=== PATIENT | female | born 1965 | race American Indian/Alaskan Native ===

== ENCOUNTER 2018-07-15 05:52 | Day surgery (SDC) | payer OTHER ==
[~2018-07-15 05:52] MED LIST: ANCEF/STERILE WATER 2 GM/20 ML 2 GM/20 ML SYRINGE IV NR
[2018-07-15] MEDS ORDERED: LACTATED RINGERS 1,000 ML IV SCH (07:12)
[2018-07-15] MEDS ORDERED: NACL BACTERIOSTATIC INFILTRATI ONE (07:13)
--- NOTE | 2018-07-15 07:32 | Anesthesia Day of Surgery ---
Anesthesia Day of Surgery - Day of Surgery Patient Examined: Yes Patient H&P Reviewed: Yes Patient is NPO: Yes
--- NOTE | 2018-07-15 07:32 | Anesthesia Consultation ---
Anesthesia Consult and Med Hx Date of service: 07/15/18 - Airway Anesthetic Teeth Evaluation: Good ROM Head & Neck: Adequate Mental/Hyoid Distance: Adequate Mallampati Class: Class III Intubation Access Assessment: Possibly Difficult - Pulmonary Exam CTA: Yes - Cardiac Exam Cardiac Exam: RRR - Pre-Operative Health Status ASA Pre-Surgery Classification: ASA1 Proposed Anesthetic Plan: General - Pulmonary Hx Smoking: No Hx Asthma: No Hx Respiratory Symptoms: No (no recent cough or flu-like symptoms) Hx Sleep Apnea: No (LETITIA PRE SCREEN LOW RISK) - Cardiovascular System Hx Hypertension: No Hx Heart Attack/AMI: No Hx Percutaneous Transluminal Coronary Angioplasty (PTCA): No Hx Cardia Arrhythmia: No - Central Nervous System Hx Seizures: No CVA: No - Endocrine Hx Renal Disease: No Hx Liver Disease: No Hx Insulin Dependent Diabetes: No Hx Non-Insulin Dependent Diabetes: No Hx Thyroid Disease: No - Hematic Hx Anemia: Yes (no hx transfusion) - Other Systems Hx Obesity: No - Additional Comments Anesthesia Medical History Comments: No hx anesthetic complications.
[2018-07-15] MEDS ORDERED: DILAUDID IV PRN (07:33)
[2018-07-15] MEDS ORDERED: VERSED IV NR (08:00)
[2018-07-15] MEDS ORDERED: NEURONTIN PO NR (08:00)
[2018-07-15] MEDS ORDERED: MARCAINE-EPI 0.5%-1:200,000 INFILTRATI ONE ×2 (08:23→09:16)
[2018-07-15] MEDS ORDERED: DIPRIVAN 10 MG/ML IV ONE (08:29)
[2018-07-15] MEDS ORDERED: XYLOCAINE MPF 2% ONE (08:29)
[2018-07-15] MEDS ORDERED: ZEMURON IV ONE (08:29)
[2018-07-15] MEDS ORDERED: DILAUDID ONE (08:29)
[2018-07-15] MEDS ORDERED: VICKS SINEX ONE ×2 (09:05→09:12)
[2018-07-15] MEDS ORDERED: VICKS SINEX NS ONE (09:16)
[2018-07-15] MEDS ORDERED: NACL 0.9% IR ONE (09:18)
[2018-07-15] MEDS ORDERED: ANTIBIOTIC OINT TP ONE ×2 (10:34→10:47)
[2018-07-15] MEDS ORDERED: LACTATED RINGERS 1,000 ML ONE (11:08)
[2018-07-15] MEDS ORDERED: DECADRON ONE (11:09)
--- NOTE | 2018-07-15 12:19 | Operative Report ---
Operative Report Operative Report: Plastic Surgery Operative Note Preoperative Diagnosis: Unacceptable cosmetic appearance Postoperative Diagnosis: Same Procedure: Open Rhinoplasty Surgeon: Natasha Rajput MD Anesthesia: Assistant Property Manager: none Specimens: none EBL: 100cc Indications: This patient is a 53 year old female who presented with complaint of displeasure with the appearance of her nose. It is a familial trait, and while she does not want to do too much alteration she desires refinement of the tip and an overall decrease in nasal width and thickness. On examination she was found to have moderate asymmetry, slight right septal deviation, a short nasal septum and thick dorsal nasal skin/tissue with inadequate projection and flared nares. The plan was for open rhinoplasty with the possibility of cartilage grafts from the nasal septum if adequate intranasal support could be maintained after harvest. We discussed the benefits as well as the risks of surgery including but not limited to hematoma, scarring, asymmetry, nasal obstruction, septal perforation, and the need for further surgery. The patient understands and accepts these risks and she desires to proceed. Informed consent was obtained. Procedure: After review of pertinent history and physical exam findings patient was brought into the operating room and placed supine on the OR table. After induction of adequate generalized endotracheal anesthesia the face was prepped with Betadine and draped in the usual sterile surgical fashion. To begin 1/2% Marcaine with epinephrine was injected subcutaneously in the nasal tissues and along the nasal septum. Adequate time was allowed for epinephrine effect at which point we began with a columellar stairstep incision which was carried out laterally along the left and right nares to allow for open exposure of the underlying cartilages and subcutaneous tissue. Some of the soft tissue overlying the lower lateral cartilages was sharply excised as well as some of the tissue of the overlying skin flap. To enhance nasal tip refinement and projection intradomal sutures were placed within the lower lateral cartilages using 4-0 PDS. Satisfied with the enhanced projection and shape, we then turned our attention to the bilateral [place] excisions of the nasal ala. Tissue measuring 5 mm at its greatest width was excised from both alar bases to narrow the width of the nasal base. Satisfied with the symmetry and position of the nostrils, we then began our closure using 4-0 Monocryl suture intranasally and 5-0 nylon suture externally. All were placed in an interrupted fashion. Nasal packing consisting of Xeroform cotton and bacitracin ointment was placed in both nares and hemostasis in a dorsal nasal splint was also applied over Steri- Strips. Patient was then awakened from general anesthesia. She tolerated the procedure well. All sponge needle and instrument counts were correct at the end of the case. There were no complications. Patient was transferred to PACU in stable condition.
[2018-07-15] MEDS ORDERED: NORCO 7.5/325 PO PRN (12:20)
[2018-07-15] MEDS ORDERED: ZOFRAN IV PRN (12:20)
--- NOTE | 2018-07-15 13:11 | Post Anesthesia Evaluation ---
- Post Anesthesia Evaluation Patient Participated: Yes Airway Patent: Yes Stable Respiratory Function: Yes Nausea/Vomiting: No Temp > 96.8F: Yes Pain Manageable: Yes Adequeate Hydration: Yes Anesthesia Complications: No
[2018-07-15 13:43] VITALS: BP 130/68
== END 2018-07-15 05:53 | disposition home or self-care (01) ==
LOC: OR 05:52
PROVIDERS: ATTEND Plastic Surgery
DX: Z41.1 Encounter for cosmetic surgery (principal); Z88.5 Allergy status to narcotic agent; Z79.899 Other long term (current) drug therapy; Z90.710 Acquired absence of both cervix and uterus; Z86.2 Personal history of diseases of the blood and blood-forming organs and certain disorders involving the immune mechanism
CPT/HCPCS: 30400; J0690; J1100; J1170; J2250; J2704; J7120